=== PATIENT | male | born 1975 | race Hispanic/Latino ===

== ENCOUNTER 2020-12-08 20:29 | Emergency (ER) | payer OTHER ==
[2020-12-08] MEDS ORDERED: Ketorolac Tromethamine 30 MG/ML VIAL ONE (21:08)
[2020-12-08] MEDS ORDERED: Cyclobenzaprine 10 MG TAB ONE (21:09)
== END 2020-12-08 21:35 | disposition home or self-care (01) ==
LOC: BURERS 20:29
DX: M54.5 Low back pain (principal)
CPT/HCPCS: 96372; 99283; J1885

== ENCOUNTER 2022-11-11 00:43 | Emergency (ER) | payer SELFPAY | END 2022-11-11 02:15 | disposition home or self-care (01) | LOC: BURERS 00:43 | DX: S56.911A Strain of unspecified muscles, fascia and tendons at forearm level, right arm, initial encounter (principal); I10 Essential (primary) hypertension; F17.210 Nicotine dependence, cigarettes, uncomplicated; Z79.899 Other long term (current) drug therapy; W22.01XA Walked into wall, initial encounter; Y99.0 Civilian activity done for income or pay ==